=== PATIENT | female | born 1995 | race American Indian/Alaskan Native ===

== ENCOUNTER 2018-09-04 22:03 | Emergency (ER) | payer SELFPAY ==
[2018-09-04 22:13] VITALS: BP 139/77
--- NOTE | 2018-09-04 22:16 | Event Note ---
ED Screening Note ED Screening Note: pt is states she tripped and fell directly onto her right ring finger c/o right ring finger pain never injured before LNMP: august 25 no PMHx allergy: motrin This initial assessment/diagnostic orders/clinical plan/treatment(s) is/are subject to change based on patients health status, clinical progression and re- assessment by fellow clinical providers in the ED. Further treatment and workup at subsequent clinical providers discretion. Patient/guardian urged not to elope from the ED as their condition may be serious if not clinically assessed and managed. Initial orders include: xr of the right hand
--- NOTE | 2018-09-04 23:11 | XRay Report ---
RIGHT HAND, 3 VIEWS 09/04/2018 INDICATION / CLINICAL INFORMATION: right ring finger injury. COMPARISON: None available. FINDINGS: Spiral fracture through the distal aspect of the proximal phalanx of the ring finger. Note is made of pronounced foreshortening of the fourth metacarpal. Signer Name: Rafi Medrano MD Signed: 09/04/2018 11:07 PM Workstation Name: [id number]
[2018-09-04] MEDS ORDERED: ULTRAM PO ONE (23:58)
--- NOTE | 2018-09-05 00:02 | Emergency Department Report ---
ED Upper Extremity Inj HPI - General Chief Complaint: Extremity Injury, Upper Stated Complaint: RIGHT INDEX FINGER PAIN/SWELLING Time Seen by Provider: 09/04/18 22:14 Source: patient, family Mode of arrival: Ambulatory Limitations: No Limitations - History of Present Illness Initial Comments: This is a 23-year-old female who presents to the emergency room with pain and swelling to right fourth proximal finger. Patient states she tripped over her foot at home in route to her kitchen. Patient states she fell with hands stretched out. She reports hearing a pop and noticing obvious deformity to the proximal finger. She reports pain is worse with the symptoms movement which is limited. Complaint: Injury to:: right, finger Onset/Timin -: hour(s) Other Extremity Injury: Fingers: Right (proximal finger) Other Injuries: none Handedness: right Severity scale (0 -10): 10 Improves With: immobilization Worsens With: movement of extremity Context: fall Associated Symptoms: heard/felt popping sensat - Related Data Previous Rx's Medication Instructions Recorded Last Taken Type traMADol [Ultram 50 MG tab] 50 mg PO Q6H PRN #12 tablet 09/05/18 Unknown Rx Allergies Allergy/AdvReac Type Severity Reaction Status Date / Time ibuprofen [From Motrin] Allergy Hives Verified 09/04/18 22:15 ED Review of Systems ROS: Stated complaint: RIGHT INDEX FINGER PAIN/SWELLING Other details as noted in HPI Constitutional: denies: chills, fever Respiratory: denies: cough, shortness of breath, wheezing Cardiovascular: denies: chest pain, palpitations Gastrointestinal: denies: abdominal pain, nausea, diarrhea Musculoskeletal: joint swelling (left proximal 4th finger), arthralgia (left proximal 4th finger). denies: back pain Skin: denies: rash, lesions Neurological: denies: headache, weakness, paresthesias Psychiatric: denies: anxiety, depression ED Past Medical Hx - Past Medical History Previous Medical History?: No - Surgical History Past Surgical History?: No - Social History Smoking Status: Never Smoker Substance Use Type: None - Medications Home Medications: Home Medications Medication Instructions Recorded Confirmed Last Taken Type traMADol [Ultram 50 MG tab] 50 mg PO Q6H PRN #12 tablet 09/05/18 Unknown Rx ED Physical Exam - General Limitations: No Limitations General appearance: alert, in no apparent distress - Respiratory Respiratory exam: Present: normal lung sounds bilaterally. Absent: respiratory distress - Cardiovascular Cardiovascular Exam: Present: regular rate, normal rhythm. Absent: systolic murmur, diastolic murmur, rubs, gallop - GI/Abdominal GI/Abdominal exam: Present: soft, normal bowel sounds - Expanded Upper Extremity Exam Right Shoulder Exam: Present: normal inspection, full ROM Upper Arm exam: Present: normal inspection, full ROM Elbow exam: Present: normal inspection, full ROM Forearm Wrist exam: Present: normal inspection, full ROM Hand Wrist exam: Present: tenderness (4th PIP, tenderness, swelling, and deformity, skin intact), swelling, deformity. Absent: abrasion, laceration, ecchymosis, crepidus, dislocation, erythema, amputation, nail avulsion, subungual hematoma Neuro motor exam: Present: wrist extension intact, thumb opposition intact, thumb IP flexion intact, thumb adduction intact. Absent: fingers 2-5 abduction intact Neurosensory exam: Present: radial nerve intact, ulnar nerve intact, median nerve intact Vascular: Present: normal capillary refill, radial pulse - Neurological Exam Neurological exam: Present: alert, oriented X3 - Psychiatric Psychiatric exam: Present: normal affect, normal mood - Skin Skin exam: Present: warm, dry, intact, normal color. Absent: rash ED Course Vital Signs 09/04/18 22:10 Temperature 99.6 F Pulse Rate 78 Respiratory 16 Rate Blood Pressure 139/77 O2 Sat by Pulse 100 Oximetry ED Medical Decision Making - Radiology Data Radiology results: report reviewed RIGHT HAND, 3 VIEWS 09/04/2018 INDICATION / CLINICAL INFORMATION: right ring finger injury. COMPARISON: None available. FINDINGS: Spiral fracture through the distal aspect of the proximal phalanx of the ring finger. Note is made of pronounced foreshortening of the fourth metacarpal. - Medical Decision Making Patient was examined by me. Vitals are normal and patient is in no acute distress. Obtained a x-ray of right hand. X-rays dictated by radiologist. Spiral fracture through the distal aspect of the proximal phalanx of the ring finger. Note is made of pronounced foreshortening of the fourth metacarpal. Finger splint was applied to the right fourth finger. Referral to orthopedics for follow-up. Start tramadol for pain. Plan discussed with patient to discharge home and treat outpatient. Patient discharged home in stable condition. Follow up with PCP in 2-3 days. Critical care attestation.: If time is entered above; I have spent that time in minutes in the direct care of this critically ill patient, excluding procedure time. ED Disposition Clinical Impression: Fall Qualifiers: Encounter type: initial encounter Qualified Code(s): W19.XXXA - Unspecified fall, initial encounter Fracture of finger of right hand Qualifiers: Encounter type: initial encounter Finger: ring finger Fracture type: closed Phalanx: proximal Fracture alignment: nondisplaced Qualified Code(s): S62.644A - Nondisplaced fracture of proximal phalanx of right ring finger, initial encounter for closed fracture Disposition: TO HOME OR SELFCARE Is pt being admited?: No Does the pt Need Aspirin: No Condition: Stable Instructions: Finger Fracture (ED) Additional Instructions: Rest Take pain medication for 6-8 hours as needed as needed for pain. Follow-up with orthopedic surgeon from the referral list below. Prescriptions: traMADol [Ultram 50 MG tab] 50 mg PO Q6H PRN #12 tablet PRN Reason: Pain , Severe (7-10) Referrals: HAIM CURTIS MD [Staff Physician] - 3-5 Days [facility] [Provider Group] - 3-5 Days [facility] [Provider Group] - 3-5 Days Forms: Work/School Release Form(ED), Accompanied Note Time of Disposition: 00:16
== END 2018-09-05 00:20 | disposition home or self-care (01) ==
LOC: ED 22:03
DX: S62.644A Nondisplaced fracture of proximal phalanx of right ring finger, initial encounter for closed fracture (principal); Z88.6 Allergy status to analgesic agent; W18.30XA Fall on same level, unspecified, initial encounter; Y93.01 Activity, walking, marching and hiking; Y92.009 Unspecified place in unspecified non-institutional (private) residence as the place of occurrence of the external cause; Y99.8 Other external cause status